=== PATIENT | female | born 1985 | race Caucasian/White ===

== ENCOUNTER 2018-09-22 01:10 | Emergency (ER) | payer OTHER ==
--- NOTE | 2018-09-22 02:12 | RADIOLOGY REPORT (SQ) ---
EXAM DESCRIPTION: Left toes RadLex: XR TOES 2 OR MORE VIEWS 2 views, AP and oblique CLINICAL HISTORY: 32 years Female, struck l 4th toe on cement curb. COMPARISON: None FINDINGS: Alignment is anatomic. No acute fractures of the metatarsals or phalanges. No hyperdense foreign bodies. Joint spaces are preserved. No lytic changes or periosteal reaction. IMPRESSION: No acute findings.
--- NOTE | 2018-09-22 03:40 | ER Document Report ---
ED General - General Chief Complaint: Toe Injury Stated Complaint: LEFT FOURTH TOE INJURY Time Seen by Provider: 09/22/18 03:26 Notes: 32-year-old female presents emergency department complaining of persistent left foot pain after hitting her left foot against a parking curb on Monday. Patient states that her third and fourth toe spread away from each other and she sustained an abrasion to the top of her left fourth toe and she has since developed bruising and increasing pain. States that she has a limp and a burning pain. States it has not changed with ice or heat. Has not tried taping her toes and has been wearing flip-flops. TRAVEL OUTSIDE OF THE [place] IN LAST 30 DAYS: No - Related Data Allergies/Adverse Reactions: nuts Allergy (Uncoded 05/16/12 02:03) Past Medical History - General Information source: Patient - Social History Smoking Status: Never Smoker Frequency of alcohol use: Occasional Drug Abuse: None Family History: Reviewed & Not Pertinent Patient has suicidal ideation: No Patient has homicidal ideation: No Renal/ Medical History: Reports: Hx Kidney Stones. Denies: Hx Peritoneal D ialysis GI Medical History: Reports: Hx Irritable Bowel Psychiatric Medical History: Reports: Hx Depression, Hx Post Traumatic Stress Disorder Past Surgical History: Reports: Hx Kidney (Renal Surgery) - Kidney Stone Stent, Hx Orthopedic Surgery - wisdom - Immunizations Hx Diphtheria, Pertussis, Tetanus Vaccination: Yes Review of Systems - Review of Systems Constitutional: No symptoms reported Cardiovascular: No symptoms reported Respiratory: No symptoms reported Gastrointestinal: No symptoms reported Musculoskeletal: See HPI Skin: See HPI Neurological/Psychological: No symptoms reported. denies: Numbness, Tingling Physical Exam - Vital signs Vitals: Temp Pulse Resp BP Pulse Ox 98.2 F 85 18 126/73 H 100 09/22/18 01:30 09/22/18 01:30 09/22/18 01:30 09/22/18 01:30 09/22/18 01:30 Interpretation: Normal - General General appearance: Appears well, Alert In distress: None - HEENT Head: Normocephalic, Atraumatic Eyes: Normal Pupils: PERRL - Respiratory Respiratory status: No respiratory distress - Cardiovascular Pulses: Normal: Posterior tibial, Dorsalis pedis - Extremities Notes: Dorsal aspect of the left foot has ecchymoses between the distal aspect of the message metatarsals 3 and 4 and a little bit of ecchymoses over the distal aspect of metatarsal #5. Superficial abrasion to the dorsal aspect of left toe #4, only area that is tender is the base of the proximal phalanx of toe 4. There is no deformity. There is no tenderness palpation over the metatarsals. - Neurological Neuro grossly intact: Yes Sensory: Normal - Sensation intact to the left foot. - Skin Skin Temperature: Warm Skin Moisture: Dry Skin Color: Normal Notes: Superficial abrasion to the dorsal aspect of the left fourth toe. Course - Re-evaluation Re-evalutation: 09/22/18 03:39 No evidence of fracture per radiologist, when I review the films myself I also see no evidence of fracture. Patient is going to be placed in Travis wrap for comfort and support, counseled on wearing supportive shoes and discharged home. - Vital Signs Vital signs: Temp Pulse Resp BP Pulse Ox 98.2 F 85 18 126/73 H 100 09/22/18 01:30 09/22/18 01:30 09/22/18 01:30 09/22/18 01:30 09/22/18 01:30 Procedures - Immobilization Left foot Pre-Proc Neuro Vasc Exam: Normal Immobilizer type: Travis wrap Performed by: RN Post-Proc Neuro Vasc Exam: Normal, Unchanged from pre-exam Alignment checked and good: Yes Discharge - Discharge Clinical Impression: Sprain of toe, fourth, left Qualifiers: Encounter type: initial encounter Qualified Code(s): S93.505A - Unspecified sprain of left lesser toe(s), initial encounter Condition: Stable Disposition: HOME, SELF-CARE Additional Instructions: Use the Travis wrap as long as it is decreasing your pain. If it does not decrease your pain you may stop using the Travis wrap. Please use ibuprofen (Motrin or Advil) 600-800 mg every 8 hours as needed for pain. You may also use acetaminophen (Tylenol) 1000 mg every 4-6 hours as needed for pain. Please be aware that many medications contain acetaminophen, do not exceed a total of 1000 mg of acetaminophen every 6 hours.
[2018-09-22 03:47] VITALS: BP 126/70
== END 2018-09-22 03:45 | disposition home or self-care (01) ==
LOC: ER 01:10
DX: S93.505A Unspecified sprain of left lesser toe(s), initial encounter (principal); W22.09XA Striking against other stationary object, initial encounter; Z91.018 Allergy to other foods
CPT/HCPCS: 99283